=== PATIENT | male | born 1995 | race Caucasian/White ===

== ENCOUNTER 2019-06-07 00:50 | Emergency (ER) | payer OTHER, SELFPAY ==
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
[2019-06-07 00:52] VITALS: RESP 16; TEMP 37.1
[2019-06-07 00:58] VITALS: BP 137/70; PULSE 86; RESP 16; O2SAT 100
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
[2019-06-07] MEDS: MORPHINE SULFATE 4 MG/ML INJ IV PUSH ×2 (01:20→02:47)
[2019-06-07 01:47] VITALS: BP 124/68; PULSE 88; RESP 12; O2SAT 100
--- NOTE | 2019-06-07 02:10 | PC.NURSE ---
0155 Called [facility] to transport patient. [facility] declined. ER aware that [facility] is unavailable for transfer. ER aware that [facility] ETA is no less than 50 minutes. [facility] Accepted transfer with 20 - 25 minute ETA
[2019-06-07 02:48] VITALS: BP 120/65; PULSE 85; RESP 24; O2SAT 96
[2019-06-07 03:10] VITALS: BP 123/99; PULSE 84; RESP 28; TEMP 36.8; O2SAT 94
== END 2019-06-07 03:10 | disposition short-term general hospital (02) ==
PROVIDERS: Emergency Provider Emergency Medicine
DX: S89.392A Other physeal fracture of lower end of left fibula, initial encounter for closed fracture (principal); S89.192A Other physeal fracture of lower end of left tibia, initial encounter for closed fracture; S01.01XA Laceration without foreign body of scalp, initial encounter; V86.55XA Driver of 3- or 4- wheeled all-terrain vehicle (ATV) injured in nontraffic accident, initial encounter
CPT/HCPCS: 29505; 71045; 73590; 96374; 96376; 99285; J2270; L0140

== ENCOUNTER 2024-05-08 19:07 | Emergency (ER) | payer OTHER, SELFPAY ==
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
--- NOTE | 2024-05-08 19:10 | ED_ITS ---
HPI - Headache General Chief Complaint: Headache Stated Complaint: fever/ neck and back pain Time Seen by Provider: 05/08/24 19:09 Source: patient Mode of arrival: ambulatory Limitations: no limitations History of Present Illness HPI Narrative: Patient is a 28-year-old male with a severe headache and neck pain and spinal pain since 4:00 a.m. this morning. He is running high fevers. No sensorium changes. No syncope. No chest pain or shortness of breath. he is having headache and neck pain and back pain. MD elicited complaint: headache Pertinent past history: other ( None) Onset (ago): day(s) (1) Onset description: suddenly Location: occipital, neck and down into neck Severity: moderate Pain scale (0-10): 5 Quality & Timing: throbbing and sharp Exacerbating factors: none Relieving factors: nothing Context: occurred at rest Associated symptoms: fever and malaise Treatments prior to arrival: none Related Data Home Medications ?Medication ?Instructions ?Recorded ?Confirmed ?Last Taken ?Type cetirizine 10 mg tablet (Zyrtec) 10 mg PO DAILY 06/16/19 05/08/24 05/08/24 History Allergies Allergy/AdvReac Type Severity Reaction Status Date / Time cat dander Allergy Unknown Unknown Verified 05/08/24 19:58 grass pollen Allergy Unknown Unknown Verified 05/08/24 19:58 No Known Allergies Allergy Unknown Verified 05/08/24 19:58 ragweed pollen Allergy Unknown Unknown Verified 05/08/24 19:58 Review of Systems 2 Review of Systems: All systems reviewed & are unremarkable except as noted in HPI and below Constitutional: Constitutional: Reports no additional constitutional complaints Eyes: Eyes: Reports no additional eye complaints ENT: Reports system reviewed and no additional complaints, except as documented Cardiovascular: Cardiovascular: Reports no additional cardiovascular complaints Respiratory: Respiratory: Reports no additional respiratory complaints Gastrointestinal: Gastrointestinal: Reports no additional gastrointestinal complaints Genitourinary: Genitourinary: Reports no additional male genitourinary complaints Musculoskeletal: Musculoskeletal: Reports no additional musculoskeletal complaints Integumentary/Breasts: Skin/Breast: Reports system reviewed and no additional complaints, except as docu Neurologic: Reports system reviewed and no additional complaints, except as documented Psychiatric: Psychiatric: Reports no additional psychiatric complaints Endocrine: Endocrine: Reports no additional endocrine complaints Hematologic/Lymphatic: Hematologic/Lymphatic: Reports no additional hematologic/lymphatic complaints Allergic/Immunologic: Allergic/Immunologic: Reports no additional allergic/immunologic complaints [facility] Past Medical History Medical History Healthy adult male Surgical History Surgical History History of mandibular surgery for double jaw Family History Family History Grandparent Family history of chronic obstructive pulmonary disease Malignant neoplasm of prostate Social History Social History Smoking status: Never smoker Exam 2 Const: General: ill appearing Nutritional Appearance: well nourished O rientation/consciousness: patient oriented x3 Limitations: no limitations HENMT: Head: normal to inspection Ears: external ears normal F valeriano/Nose/Sinus: Normal external nose present Eyes: Conjunctivae: conjunctivae normal Pupils: Equal, round and reactive pupils present EOM: EOMs intact bilaterally Neck: Neck: normal visual inspection Chest: Chest palpation & inspection: normal inspection of the chest Resp: Effort & Inspection: normal respiratory effort and not labored A uscultation: clear to auscultation bilaterally and no crackles Cardio: Rate: regular rate Rhythm: regular rhythm Heart sounds: no murmurs GI: Inspection: non-distended GI Palp: Yes Soft to palpation and No Tenderness to palpation present (GI) Auscultation: normal bowel sounds : General: Yes bladder normal to palpation Back/Spine/Pelvis: Back: no CVA tenderness Skin: General skin exam: normal color Rashes: no rashes Wounds: no wounds Neuro: General: patient oriented x3, moves all extremities, no meningeal signs ( Meningitis testing on examination was negative for acute changes), no focal motor deficits and CN's II-XI intact bilaterally Cranial nerves: Yes Nystagmus not present Speech: normal speech Gait exam (Neuro): Normal gait present Other: fast exam is negative GCS is 15 NIH is 0 Extrem: General: normal to inspection Psych: Mental Status: mental status grossly normal Affect: normal affect Attitude: cooperative Course Vital Signs Vital signs: Vital Signs Temperature 38.6 C H 05/08/24 19:12 Pulse Rate 107 H 05/08/24 19:12 Respiratory Rate 18 05/08/24 19:12 Blood Pressure 127/80 05/08/24 19:12 Pulse Oximetry 96 05/08/24 19:12 Oxygen Delivery Room Air 05/08/24 19:12 Temperature 36.8 C 05/08/24 23:37 Pulse Rate 74 05/08/24 23:37 Respiratory Rate 18 05/08/24 23:37 Blood Pressure 116/63 05/08/24 23:37 Pulse Oximetry 97 05/08/24 23:37 Oxygen Delivery Room Air 05/08/24 23:37 MDM - Headache MDM Narrative Medical decision making narrative: patient is a 28-year-old male with headache, neck pain and fever. We are taking this case as a meningitis suspect and will proceed with septic workup. We will transfer patient for spinal tap as we do not do any spinal fluid analysis at this facility. discussed the case with [facility] and they put him on a waiting list and most local hospitals of higher level care all waiting list. we will proceed with dexamethasone, Rocephin and vancomycin IV at this time. He will get an LP done in the next 24 hours. Patient is feeling much better at this time and does not want to be transferred for lumbar puncture or meningitis treatment. COVID came back positive and does explain fever and some of the symptoms he is having at this time. I explained that meningitis is still very possible and I would like to do antibiotics and transfer. Patient has decided to go AMA at this time. Patient understands if he has meningitis and he goes home at this time he could . See AMA form. Antibiotics were not given so he does not feel better because doses of antibiotics were given. Lab Data Attestation: I reviewed the patient's lab results. 05/08/24 19:27 05/08/24 19:27 Labs: Lab Results 05/08/24 05/08/24 Range/Units 19:27 23:39 WBC 3.8 L (4.8-10.8) K/mm3 RBC 4.71 (4.70-6.10) M/mm3 Hgb 14.1 (14.0-18.0) g/dL Hct 39.8 L (40.0-54.0) % MCV 84.5 (78.0-102.0) fL MCH 29.9 (27.0-31.0) pg MCHC 35.4 (32-36) g/dL RDW 11.9 (11.6-14.4) % Plt Count 180 (150-420) K/mm3 MPV 10.6 (8.7-11.0) fl Immature Gran % (Auto) Not Reportable Neut % (Auto) Not Reportable Lymph % (Auto) Not Reportable [place] % (Auto) Not Reportable Eos % (Auto) Not Reportable Baso % (Auto) Not Reportable Lymph # (Auto) Not Reportable [place] # (Auto) Not Reportable Eos # (Auto) Not Reportable Baso # (Auto) Not Reportable Abs Immat Gran (auto) Not Reportable Absolute Neuts (auto) Not Reportable Absolute Nucleated RBC Not Reportable Total Counted 100 Neutrophils % (Manual) 63 (46-73) % Band Neutrophils % 0 (0-6) % Lymphocytes % (Manual) 13 L (18-44) % Monocytes % (Manual) 23 H (3-9) % Eosinophils % (Manual) 1 (1-6) % Basophils % (Manual) 0 (0-1) % Nucleated RBC % Not Reportable Abs Neuts (Manual) 2.39 (1.3-6.7) K/mm3 Abs Lymphs (Manual) 0.49 L (1.1-4.5) K/mm3 Abs Monocytes (Manual) 0.87 (0.1-0.90) K/mm3 Absolute Eos (Manual) 0.03 (0.02-0.50) K/mm3 Abs Basophils (Manual) 0.00 (0-0.1) K/mm3 Platelet Estimate Adequate (Adequate) Schistocytes Not Reportable Sodium 137 (136-145) mmol/L Potassium 3.3 L (3.5-5.1) mmol/L Chloride 103 (98-108) mmol/L Carbon Dioxide 25 (21-32) mmol/L Anion Gap 9 (4-12) mmol/L BUN 13 (7-18) mg/dL Creatinine 1.27 (0.70-1.30) mg/dL Estim Creat Clear Calc 81 ml/min Estimated GFR > 60 (59 - ) Glucose 111 H (70-99) mg/dL Calculated Osmolality 285 (285-295) mOsm/kg Lactic Acid 0.9 (0.4-2.0) mmol/L Calcium 8.4 L (8.5-10.1) mg/dL Total Bilirubin 0.6 (0.00-1.00) mg/dL AST 17 (15-37) U/L ALT 30 (16-63) U/L Alkaline Phosphatase 67 (46-116) U/L Total Protein 6.6 (6.4-8.2) g/dL Albumin 4.3 (3.4-5.0) g/dL Urine Color Light yellow (Yellow) Urine Appearance Clear (Clear) Urine pH 5.5 (5.0-8.0) Ur Specific [place] <= 1.005 L (1.010-1.020) Urine Protein Negative (Negative) Urine Glucose (UA) Negative (Negative) Urine Ketones Negative (Negative) Ur Blood (Man) Negative (Negative) Urine Nitrate Negative (Negative) Urine Bilirubin Negative (Negative) Urine Urobilinogen 0.2 (0.2-1.0) mg/dL Leukocyte Esterase Rfl Negative (Negative) VANESSA/UL Influenza A (RT-PCR) Negative (Negative) Influenza B (RT-PCR) Negative (Negative) RSV (RT-PCR) Negative (Negative) SARS-CoV-2 RNA (RT-PCR) Positive A (Negative) Imaging Data Attestation: I personally reviewed and interpreted this imaging study as follows: Radiologist's impression: CT scan of the head was negative for acute process chest x-ray was not done due to AMA and was planned before transfer Discharge Plan Discharge Clinical Impression: COVID-19 Headache Qualifiers: Headache type: unspecified Headache chronicity pattern: acute headache I ntractability: not intractable Qualified Code(s): R51.9 - Headache, unspecified Fever Qualifiers: Fever type: due to other condition Qualified Code(s): R50.81 - Fever presenting with conditions classified elsewhere Patient Disposition: Left Against Medical Advice Condition: Serious Patient Language: Occitan Prescriptions: No Action cetirizine [Zyrtec] 10 mg tablet 10 mg PO DAILY Follow-up/Referrals: Eve,Jeovany Albert MD [Primary Care Provider] - Time of Disposition: 00:12
[2024-05-08 19:12] VITALS: BP 127/80; PULSE 107; RESP 18; TEMP 38.6; O2SAT 96
[2024-05-08 19:32] LABS: Hematocrit 39.8 % (40.0-54.0); Hemoglobin 14.1 g/dL (14.0-18.0); Mean Corpuscular HGB Conc 35.4 g/dL (32-36); Mean Corpuscular Hemoglobin 29.9 pg (27.0-31.0); Mean Corpuscular Volume 84.5 fL (78.0-102.0); Mean Platelet Volume 10.6 fl (8.7-11.0); Platelet Count Result 180 K/mm3 (150-420); Red Blood Count 4.71 M/mm3 (4.70-6.10); Red Cell Distribution Width 11.9 % (11.6-14.4); White Blood Count 3.8 K/mm3 (4.8-10.8)
[2024-05-08 19:43] LABS: Band Neutrophils Percent 0 % (0-6); Basophils Percent Manual 0 % (0-1); Eosinophils Absolute Manual 0.03 K/mm3 (0.02-0.50); Eosinophils Percent Manual 1 % (1-6); Lymphocytes Absolute Manual 0.49 K/mm3 (1.1-4.5); Lymphocytes Percent Manual 13 % (18-44); Monocytes Absolute Manual 0.87 K/mm3 (0.1-0.90); Monocytes Percent Manual 23 % (3-9); Neutrophils Absolute Manual 2.39 K/mm3 (1.3-6.7); Neutrophils Percent Manual 63 % (46-73); Total Cells Counted 100
[2024-05-08 19:44] LABS: Platelet Estimate Adequate (Adequate)
[2024-05-08 19:46] LABS: Alanine Aminotransferase 30 U/L (16-63); Albumin Level 4.3 g/dL (3.4-5.0); Alkaline Phosphatase 67 U/L (46-116); Anion Gap 9 mmol/L (4-12); Aspartate Amino Transferase 17 U/L (15-37); Bilirubin,Total 0.6 mg/dL (0.00-1.00); Blood Urea Nitrogen 13 mg/dL (7-18); Calcium 8.4 mg/dL (8.5-10.1); Carbon Dioxide 25 mmol/L (21-32); Chloride 103 mmol/L (98-108); Estimated CRCL calculation 81 ml/min; Estimated Glomerular Filt Rate > 60; Glucose 111 mg/dL (70-99); Osmolality Calculated 285 mOsm/kg (285-295); Potassium 3.3 mmol/L (3.5-5.1); Sodium 137 mmol/L (136-145); Total Protein 6.6 g/dL (6.4-8.2)
[2024-05-08] MEDS: ACETAMINOPHEN 500 MG TABLET 1000 MG PO (19:50)
[2024-05-08 19:51] LABS: Lactic Acid Reflex 0.9 mmol/L (0.4-2.0)
[2024-05-08] MEDS: SODIUM CHLORIDE 0.9% IV 1,000 ML 999 ML IV CONT (19:52)
[2024-05-08 20:08] LABS: Influenza A QL RT-PCR Negative (Negative); Influenza B QL RT-PCR Negative (Negative); RSV RNA, RT-PCR Negative (Negative); SARS-CoV-2 RNA PCR Positive (Negative)
[2024-05-08 20:36] VITALS: TEMP 37.6
--- NOTE | 2024-05-08 21:15 | PC.NURSE ---
spoke with patient about finding other possible placement, as [facility] cannot accommodate him at this time. Patient requesting to speak to ERP about other treatment options and about the rest of the test results.
[2024-05-08] MEDS: dexAMETHasone SOD PHOS INJ 10 MG/ML 1 ML VIAL IV PUSH (21:24)
--- NOTE | 2024-05-08 21:50 | PC.NURSE ---
patient and mother updated on Covid diagnosis and treatment, but still wanting to transfer for LP. Patient wanting to talk with mother about where else to go.
--- NOTE | 2024-05-08 23:00 | PC.NURSE ---
spoke with patient and mother about options for further treatment at another facility, as ours does not offer those resources for this patients' diagnosis. Patient going to speak with mother and get back with RN/ERP about whether he is going to leave AMA or consider further treatment. Patient was provided extensive education on consequences on not pursuing further treatment for possible meningitis diagnosis and leaving AMA.
[2024-05-08 23:37] VITALS: BP 116/63; PULSE 74; RESP 18; TEMP 36.8; O2SAT 97
[2024-05-08 23:42] LABS: Add Urine Microscopic? NO; Appearance Urine Clear (Clear); Bilirubin Urine Negative (Negative); Blood Urine Negative (Negative); Color Urine Light Yellow (Yellow); Glucose Urine UA Negative (Negative); Ketones Urine Negative (Negative); Leukocyte Esterase Ur Negative LEU/UL (Negative); Nitrate Urine Negative (Negative); Protein Urine Negative (Negative); Specific Grav Ur <= 1.005 (1.010-1.020); Urobilinogen Urine 0.2 mg/dL (0.2-1.0); pH Urine 5.5 (5.0-8.0)
--- NOTE | 2024-05-08 23:55 | PC.NURSE ---
Patient stating that he feels better and is wanting to go home. ERP/RN at bedside educating patient. Patient still requesting to leave.
--- NOTE | 2024-05-10 12:34 | PC.NURSE ---
PRELIMINARY BLOOD CULTURE; NO GROWTH TO DATE.
== END 2024-05-09 00:10 | disposition left against medical advice (07) ==
PROVIDERS: Emergency Provider Emergency Medicine; PCP Family Medicine
DX: U07.1 COVID-19 (principal); R51.9 Headache, unspecified; R50.81 Fever presenting with conditions classified elsewhere; Z53.29 Procedure and treatment not carried out because of patient's decision for other reasons
CPT/HCPCS: 36415; 70450; 80053; 81003; 83605; 85025; 87040; 87637; 96361; 96374; 99284; J1100; J7030